=== PATIENT | female | born 1960 | race Caucasian/White ===

== ENCOUNTER 2017-11-04 06:54 | Emergency (ER) | payer MEDICAID, OTHER ==
[~2017-11-04] VITALS: Ht 157.5 cm; Wt 75.0 kg
[2017-11-04 06:55] VITALS: Ht 157.5 cm; Wt 75.0 kg
[2017-11-04] MEDS ORDERED: SOD CHLORIDE 0.9% 1,000 ML IV STA (07:16)
--- NOTE | 2017-11-04 07:21 | ERD ---
ER Documentation Chief Complaint Chief Complaint dizziness and nausea since this am HPI Patient is a 57-year-old female who awoke with sudden onset, moderate, vertigo- like dizziness this morning. She denies headache, denies vomiting, denies fever. She denies focal weakness or numbness. She states that she feels generalized malaise and fatigue. Not had prior episodes of these symptoms. Denies diplopia. Denies depression or anxiety. ROS All systems reviewed and are negative except as per history of present illness. Medications Home Meds Active Scripts Meclizine Hcl* (Antivert*) 12.5 Mg Tab, 25 MG PO Q6H Y for DIZZINESS, #20 TAB Prov:ROSE MARS MD 11/04/17 Reported Medications Aspirin* (Aspirin* EC) 81 Mg Tablet.dr, 81 MG PO DAILY, TAB 11/04/17 Levothyroxine Sodium* (Levothyroxine Sodium*) 25 Mcg Tablet, 25 MCG PO BEFORE BREAKFAST, #30 TAB 11/04/17 Amlodipine Besylate* (Amlodipine Besylate*) 10 Mg Tablet, 10 MG PO DAILY, #30 TAB 11/04/17 Simvastatin* (Zocor*) 10 Mg Tablet, 10 MG PO QHS, #30 TAB 11/04/17 Alendronate Sodium* (Fosamax*) 70 Mg Tablet, 70 MG PO Q7D, #4 TAB 11/04/17 Cholecalciferol* (Vitamin D3*) 1,000 Unit Tablet, 1000 UNIT PO DAILY, TAB 11/04/17 Allergies Allergies: Coded Allergies: No Known Allergy (Unverified , 11/04/17) PMhx/Soc Medical history: Pituitary tumor, hypertension osteoporosis Past surgical history: Section of brain tumor 3 years ago, last MRI 1 year ago History: Denies tobacco, alcohol or illicit drugs FmHx Noncontributory Physical Exam Vitals Vital Signs Date Time Temp Pulse Resp B/P Pulse Ox O2 Delivery O2 Flow Rate FiO2 11/04/17 12:29 98.6 80 20 101/67 95 Room Air 11/04/17 10:57 72 18 127/73 97 Room Air 11/04/17 08:42 64 18 130/66 96 Room Air 11/04/17 07:47 85 18 146/92 98 Room Air 11/04/17 06:55 97.9 79 18 132/73 99 Physical Exam Const: Slightly lethargic, teary-eyed Head: Atraumatic Eyes: Normal Conjunctiva no pallor, no icterus ENT: Normal External Ears, Nose and Mouth. Mucous membranes moist, tympanic membranes clear Neck: Full range of motion. No meningismus. Resp: Clear to auscultation bilaterally no wheezes, no rales Cardio: Regular rate and rhythm, no murmurs Abd: Soft, non tender, non distended. Skin: No petechiae or rashes Ext: No cyanosis, or edema Neur: Awake and alert, cranial nerves II through XII intact bilaterally, strength and sensation full in 4 extremities, no drift, no dysmetria, negative Babinski's, no nystagmus Psych: Normal Mood and Affect Result Diagram: 11/04/17 0711/04/17 0720 Results 24 hrs Laboratory Tests Test 11/04/17 07:20 11/04/17 09:40 White Blood Count 8.610^3/ul Red Blood Count 4.6510^6/ul Hemoglobin 13.4g/dl Hematocrit 41.1% Mean Corpuscular Volume 88.4fl Mean Corpuscular Hemoglobin 28.8pg Mean Corpuscular Hemoglobin Concent 32.6g/dl Red Cell Distribution Width 14.4% Platelet Count 19609^3/UL Mean Platelet Volume 12.6fl Neutrophils % 78.9% Lymphocytes % 14.8% Monocytes % 5.1% Eosinophils % 0.4% Basophils % 0.4% Nucleated Red Blood Cells % 0.0/100WBC Neutrophils # 6.810^3/ul Lymphocytes # 1.310^3/ul Monocytes # 0.410^3/ul Eosinophils # 0.010^3/ul Basophils # 0.010^3/ul Nucleated Red Blood Cells # 0.010^3/ul Prothrombin Time 11.9Sec Prothrombin Time Ratio 0.9 INR International Normalized Ratio 0.87 Sodium Level 143mmol/L Potassium Level 3.3mmol/L Chloride Level 102mmol/L Carbon Dioxide Level 28mmol/L Anion Gap 16 Blood Urea Nitrogen 11mg/dl Creatinine 0.68mg/dl Glucose Level 167mg/dl Calcium Level 9.6mg/dl Urine Color STRAW Urine Clarity CLEAR Urine pH 8.0 Urine Specific [place] 1.006 Urine Ketones NEGATIVEmg/dL Urine Nitrite NEGATIVEmg/dL Urine Bilirubin NEGATIVEmg/dL Urine Urobilinogen NEGATIVEmg/dL Urine Leukocyte Esterase NEGATIVELeu/ul Urine Microscopic RBC 7/HPF Urine Microscopic WBC 1/HPF Urine Squamous Epithelial Cells FEW/HPF Urine Amorphous Crystals FEW/HPF Urine Bacteria FEW/HPF Urine Hemoglobin 2+mg/dL Urine Glucose NEGATIVEmg/dL Urine Total Protein NEGATIVEmg/dl Current Medications Medications (Trade) Dose Ordered Sig/Dwaine Route PRN Reason Start Time Stop Time Status Last Admin Dose Admin Sodium Chloride (NS) 1,000 ml @ 1,000 mls/hr Q1H STAT IV 11/04/17 07:16 11/04/17 08:15 DC 11/04/17 08:00 Lorazepam (Ativan) 0.5 mg ONCE ONCE IV 11/04/17 07:30 11/04/17 07:31 DC 11/04/17 08:00 Meclizine HCl (Antivert) 25 mg ONCE ONCE PO 11/04/17 07:30 11/04/17 07:31 DC 11/04/17 08:00 Potassium Chloride (Klor-Con 20) 20 meq ONCE STAT PO 11/04/17 09:07 11/04/17 09:10 DC 11/04/17 10:32 Procedures/MDM EKG read by me: I am 742, rate 74 Rhythm: Normal sinus [place]: Left axis deviation Intervals: Prolonged QTC ST-T waves: Nonspecific ST abnormality with T-wave flattening. Ectopy: No Q-waves: No Impression: No arrhythmia or obvious ischemia MDM: Patient is a 57-year-old female who presents to the ER with acute vertigo. She has no other associated neurological symptoms or deficits. Given her history of pituitary tumor, head CT was performed and is unremarkable. The patient was given meclizine, IV fluids, and a small dose of Ativan, and on reassessment she states that she feels better. She was able to ambulate to the bathroom with a steady gait, but reported that movement exacerbated her symptoms. I suspect that she has benign paroxysmal peripheral vertigo. I advised her on return precautions and PMD follow-up of her symptoms do not improve in the next few days. She had mild hypokalemia and was given oral potassium repletion. Departure Diagnosis: Primary Impression: Vertigo Additional Impression: Hypokalemia Condition: ROSE Pichardo MD Nov 04, 2017 07:21
[2017-11-04] MEDS ORDERED: LORAZEPAM 2 MG INJ IV ONE (07:30)
[2017-11-04] MEDS ORDERED: MECLIZINE 12.5 MG TAB PO ONE (07:30)
--- NOTE | 2017-11-04 07:41 | RADRPT ---
PROCEDURE: CT Brain without contrast. CLINICAL INDICATION: Headache, altered mental status TECHNIQUE: A CT of the brain was performed on a multi-slice CT scanner utilizing axial imaging fro m the skull base through the vertex without IV contrast. Multiplanar reformatted images were made. Images were reviewed on a PACS workstation. The CTDIvol is 44.6 mGy and the DLP is 630.2 mGycm. One or more of the following dose reduction techniques were used: Automated exposure control. Adjustment of the mA and/or kV according to patient's size. Use of iterative reconstruction technique. DICOM images are available. COMPARISON: None FINDINGS: The sulcal gyral pattern is unremarkable without evidence of effacement. The vaughan-white matter diff erentiation is intact. No masses, edema or shift is identified. There are no intraparenchymal or extraaxial fluid collecti ons. The visualized paranasal sinuses and mastoid air cells are well-aerated. The skull base and calvari um are intact. IMPRESSION: No acute intracranial abnormalities are identified. RPTAT:AAJJ Physician Jose Date Time Electronically viewed and signed by Physician Jose on 11/04/2017 07:41 TEDDY/
[2017-11-04 08:01] LABS: BASOPHILS % 0.4 % (0.0-2.0); EOSINOPHILS % 0.4 % (0.0-7.0); HEMATOCRIT 41.1 % (37.0-47.0); HEMOGLOBIN 13.4 g/dl (12.0-16.0); LYMPHOCYTES # 1.3 10^3/ul (0.8-2.9); LYMPHOCYTES % 14.8 % (15.0-51.0); MEAN CORPUSCULAR HEMOGLOBIN 28.8 pg (29.0-33.0); MEAN CORPUSCULAR HGB CONC 32.6 g/dl (32.0-37.0); MEAN CORPUSCULAR VOLUME 88.4 fl (82.0-101.0); MEAN PLATELET VOLUME 12.6 fl (7.4-10.4); MONOCYTE # 0.4 10^3/ul (0.3-0.9); MONOCYTES % 5.1 % (0.0-11.0); NEUTROPHIL # 6.8 10^3/ul (1.6-7.5); NEUTROPHILS % 78.9 % (39.0-77.0); PLATELET COUNT 242 10^3/UL (140-415); RED BLOOD COUNT 4.65 10^6/ul (4.20-5.40); RED CELL DISTRIBUTION WIDTH 14.4 % (11.5-14.5); WHITE BLOOD COUNT 8.6 10^3/ul (4.8-10.8)
[2017-11-04] MEDS ORDERED: SIMV10TA PO (08:02)
[2017-11-04] MEDS ORDERED: AMLO-147 PO (08:02)
[2017-11-04] MEDS ORDERED: CHOL100062 PO (08:02)
[2017-11-04] MEDS ORDERED: ALEN70TA30 PO (08:02)
[2017-11-04] MEDS ORDERED: LEVO25TA53 PO (08:03)
[2017-11-04 08:25] LABS: INR 0.87; PROTIME 11.9 Sec (11.9-14.9); PT RATIO 0.9
[2017-11-04 08:26] LABS: CALCIUM 9.6 mg/dl (8.4-10.2); CREATININE 0.68 mg/dl (0.44-1.00); POTASSIUM 3.3 mmol/L (3.5-5.1)
[2017-11-04] MEDS ORDERED: ASPI-664 PO (08:27)
[2017-11-04] MEDS ORDERED: POTASSIUM CHLORIDE (SR) 20 MEQ TAB PO STA (09:07)
[2017-11-04 10:24] LABS: ADD UMIC YES; UR AMORPHOUS CRYSTAL FEW /HPF (NONE SEEN); UR ASCORBIC ACID NEGATIVE (NEGATIVE); UR BACTERIA FEW /HPF (NONE SEEN); UR BILIRUBIN (Dip) NEGATIVE (NEGATIVE); UR BLOOD (Dip) 2+ mg/dL (NEGATIVE); UR CLARITY CLEAR (CLEAR); UR COLOR STRAW (YELLOW); UR GLUCOSE (Dip) NEGATIVE (NEGATIVE); UR KETONES (Dip) NEGATIVE (NEGATIVE); UR LEUKOCYTE ESTERASE (Dip) NEGATIVE Leu/ul (NEGATIVE); UR NITRITE (Dip) NEGATIVE (NEGATIVE); UR RBC 7 /HPF (0-5); UR SPECIFIC GRAVITY (Dip) 1.006 (1.003-1.030); UR SQUAMOUS EPITHELIAL CELL FEW /HPF (FEW); UR TOTAL PROTEIN (Dip) NEGATIVE (NEGATIVE); UR UROBILINOGEN (Dip) NEGATIVE (NEGATIVE)
[2017-11-04] MEDS ORDERED: MECL12.574 PO (11:01)
[2017-11-04 12:29] VITALS: BP 101/67; PULSE 80; RESP 20; TEMP 98.6
== END 2017-11-04 12:30 | disposition home or self-care (01) ==
LOC: E/R 06:54
DX: R42 Dizziness and giddiness (principal); E87.6 Hypokalemia; R40.2142 Coma scale, eyes open, spontaneous, at arrival to emergency department; R40.2252 Coma scale, best verbal response, oriented, at arrival to emergency department; R40.2362 Coma scale, best motor response, obeys commands, at arrival to emergency department; Z79.82 Long term (current) use of aspirin
CPT/HCPCS: 36415; 70450; 80048; 81001; 85025; 85610; 93005; 96374; 99285; J2060; J7030